=== PATIENT | female | born 1945 | race Two or more races ===

== ENCOUNTER → 2016-12-28 | Outpatient (CLI) | payer MEDICAID | END | disposition home or self-care (01) | LOC: RADPV 15:42 | PROVIDERS: ATTEND Legal Medicine | DX: I10 Essential (primary) hypertension (principal); M43.8X4 Other specified deforming dorsopathies, thoracic region | CPT/HCPCS: 71020 ==

== ENCOUNTER → 2017-01-01 | Outpatient (CLI) | payer MEDICAID | END | disposition home or self-care (01) | LOC: EDUNIT# 09:00 → RADPV 12:35 | PROVIDERS: ATTEND Legal Medicine | DX: I10 Essential (primary) hypertension (principal) | CPT/HCPCS: 93306 ==